=== PATIENT | female | born 1975 | race Caucasian/White ===

== ENCOUNTER 2019-06-14 19:54 | Outpatient (CLI) | payer MEDICAID | END 2019-06-15 06:40 | disposition home or self-care (01) | LOC: SLEEP 19:54 | PROVIDERS: ATTEND Pediatrics | DX: G47.33 Obstructive sleep apnea (adult) (pediatric) (principal); I10 Essential (primary) hypertension; E11.9 Type 2 diabetes mellitus without complications; E66.01 Morbid (severe) obesity due to excess calories; F32.5 Major depressive disorder, single episode, in full remission | CPT/HCPCS: 95811 ==